=== PATIENT | male | born 1960 | race African-American/Black ===

== ENCOUNTER 2025-04-30 09:40 | Outpatient (AMB) | payer OTHER, SELFPAY ==
--- NOTE | 2025-04-30 09:58 | A.OFFVIS_ITS ---
Vital Signs 04/30/25 10:01 Height 5 ft 5 in Weight 162 lb 11.218 oz BMI 27.1 BP 140/82 H Blood Pressure Location Lt brachial Position Sitting Pulse 97 Pulse Source Pulse Oximeter Pulse Oximetry (%) 98 Oxygen Delivery Method Room Air Intake Visit Reasons: Adrenal gland disorder Intake Note: New patient present today for Arenal Gland Disorder. Community Service Director Required: No Accompanied by: Self / Same As Patient Allergies No Known Allergies Allergy (Verified 04/30/25 10:03) Medication List - Last Reconciled 04/30/25 by Leroy Hendrix MD albuterol sulfate 90 mcg/actuation 1 inh inhalation Q4-6H PRN hydrocortisone 5 mg PO QID HPI Comments Details: History of Present Illness The patient is a 64 year old male presenting for an endocrinology consultation regarding his history of adrenal insufficiency. He was diagnosed with adrenal insufficiency in the past, likely less than 10 years ago, after being referred by his primary care provider at the [place] in [place] to an beam dyer recessed vat in [place]. The patient has a limited understanding of his condition and does not recall experiencing any specific symptoms such as fatigue, weakness, or weight loss at the time of diagnosis. He reports a decrease in his walking stamina compared to his younger years but denies any history of adrenal crisis, hospitalization for this condition, passing out, or significant dizziness. His treatment has consisted of hydrocortisone, and he denies ever taking fludrocortisone or other steroids like prednisone. The patient confirms he has an emergency hydrocortisone injection kit at home and wears a medical alert bracelet, although he was previously unaware of the bracelet's purpose. He denies ever having an Cortrosyn stimulation test. His family history is unknown as his mother did not discuss medical issues. He is a of the [employer] (formerly [employer] Medication History - Hydrocortisone: Currently taking for adrenal insufficiency. - Fludrocortisone: Denies ever taking. - Prednisone: Denies ever taking for asthma or other conditions. Medications - Hydrocortisone 5 mg: Takes 3 pills (15 mg) in the morning and 1 pill (5 mg) at night. Exercise The patient reports a history of being active, having previously walked long distances regularly. He notes that he can no longer walk as far as he used to. Diet History The patient reports a good appetite. He was previously underweight and has been actively trying to gain weight, and he reports feeling good at his current weight. Results [facility] Medical History (Updated 04/30/25 @ 10:37 by Leroy Hendrix MD) Adrenal insufficiency Surgical History History of jaw surgery Family History Mother No problems noted. Social History (Updated 04/30/25 @ 10:08 by BENTON Wright) Alcohol intake: current Alcohol intake frequency: holidays/special occasions only Patient Tobacco Use Status: Current everyday Tobacco user Review of Systems Narrative Review of Systems - Constitutional: Reports good appetite and feeling well at his current weight after a period of being underweight. Denies fatigue, weakness, or weight loss at the time of his initial diagnosis. - Neurological: Denies dizziness on standing or a history of syncope. - Gastrointestinal: Reports good appetite. Denies nausea. - Musculoskeletal: Reports decreased walking tolerance compared to the past. - Integumentary: Denies any skin discoloration. Physical Exam Exam Exam: Physical Exam - General: Well-appearing male, cooperative with exam. - HEENT: Oropharynx is clear, no buccal mucosal hyperpigmentation. - Neck: Supple, no thyromegaly noted. - Skin: No hyperpigmentation or discoloration noted. Patient is wearing a medical alert bracelet. - Lungs: Clear to auscultation bilaterally. Absence of Cushingoid features. Absence of acromegalic features. Neck exam reveals nl size thyroid about 15 gms. No thyroid nodules palpable. Heart S1 S2, Reg R/R. No M/R G. Skin exam reveals absence of vitiligo or acanthosis nigricans. Visual exam of foot performed. No ulcerations or open lesions. No inter digit maceration or fissuring. No onychomycosis, no callouses. Sensation intact to monofilament exam. Vibratory sensation is normal with 128 Hz tuning fork. Vital Signs: Last Vital Signs Pulse 97 04/30/25 10:01 BP 140/82 H 04/30/25 10:01 Pulse Ox 98 04/30/25 10:01 Oxygen Delivery Method Room Air 04/30/25 10:01 BMI result Body Mass Index 27.1 Const Other: There is the absence of hyperpigmentation of hyperpigmentation of the skin or buccal hyperpigmentation. Thyroid gland is normal size weighs about 15 g. There are no thyroid nodules palpated. There were no cushingoid features Assessment & Plan Assessment & Plan (1) Adrenal insufficiency: Code(s): E27.40 - Unspecified adrenocortical insufficiency Category: Medical Plan: 64-year-old black male with a history of adrenal insufficiency ? primary versus secondary currently being treated with hydrocortisone 5 mg q.i.d.. Plan Assessment and Plan 1. Adrenal Insufficiency The patient is a 64-year-old male with a history of adrenal insufficiency, for whom the etiology is unclear. He was referred for ongoing management after the skilled nursing of his prior beam dyer recessed vat. 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 The immediate plan is to establish the correct diagnosis and confirm the ongoing necessity of steroid replacement therapy to avoid potential complications of both under- and over-treatment, such as Joni syndrome. Obtain morning blood tests, specifically an 8:00 AM ACTH, to help differentiate between primary and secondary adrenal insufficiency. The patient was instructed that these labs must be drawn at 8:00 AM. Check a DHEA-S level as well as a renin level Have the patient sign a release of information to obtain prior medical records from the [place] and Dr. Rodarte to review any previous diagnostic workup. The patient will continue his current hydrocortisone regimen of 15 mg in the morning and 5 mg at night. Re-educated the patient on sick day rules: double the hydrocortisone dose for illness or fever. In the event of vomiting and inability to take oral medication, he is to use his emergency hydrocortisone injection and proceed to an emergency room. Deferred further diagnostic studies such as a pituitary MRI or a stimulation test pending results of the initial bloodwork and review of prior records. Recommended the continued use of his medical alert bracelet. Schedule a follow-up visit in approximately 10 weeks to review results. The patient was advised to complete the lab work at least two weeks prior to the follow-up appointment. The patient had an opportunity to ask questions regarding treatment plan. The patient expressed understanding and agreement with the above treatment plan. Patient was informed and verbally consented to the use of an ambient scribe for clinic note documentation during this visit. Discussion Notes I explained to the patient the function of the adrenal glands and the hormone cortisol. I discussed the potential causes of his adrenal insufficiency, differentiating between primary adrenal insufficiency (a problem with the adrenal glands themselves, like Donny's disease) and secondary adrenal insufficiency (an issue with the signal from the pituitary gland in the brain). I outlined my plan to investigate the cause by ordering specific morning blood tests and requesting his prior medical records from the [place]. I mentioned that future testing, such as an MRI of the pituitary or a stimulation test, may be necessary depending on these initial results. I instructed him to continue his current hydrocortisone dose and reviewed the critical importance of sick day ru les, including doubling the dose when ill and using his emergency injection and seeking ER care if he is vomiting and unable to take his medication orally. We arranged for a follow-up in about 10 weeks, and I stressed that the blood work needs to be completed at 8 AM and at least two weeks before his next visit. Patient Instructions - Continue taking your hydrocortisone as prescribed: 3 pills (15 mg) in the morning and 1 pill (5 mg) at night. - Go to the lab on the first floor of this building to have blood tests done. It is very important that you go at 8:00 in the morning for this test. You do not need to fast (it is okay to eat beforehand). - Please get your blood work done at least two weeks before your next appointment. - Before you leave today, please sign a release form so we can get your past medical records from the [place]. - Remember your sick day rules: If you get sick with an infection or a fever, double your dose of hydrocortisone (take 30 mg in the morning and 10 mg at nig ht). - If you are sick and throwing up and cannot keep your pills down, use your emergency injection and go to the nearest emergency room right away. - We will see you back in the office in about 10 weeks. Orders: Orders DHEA Sulfate Today E27.40 - Unspecified adrenocortical insufficiency Adrenocorticotropic Hormone Today E27.40 - Unspecified adrenocortical insufficiency Renin Today E27.40 - Unspecified adrenocortical insufficiency Coding Level of Care Code New Pt Level 4 (45047) Diagnoses Adrenal insufficiency E27.40
[2025-04-30 10:01] VITALS: BP 140/82; PULSE 97; O2SAT 98; BMI 27.1
--- OUTSIDE RECORDS SUMMARY | 2025-04-30 10:31 | XMS_ITS | Clinical Summary ---
Author Organization [facility] Address [address] [place] [address] Phone Care Team Providers Care Sharepoint Engineer Name Role Phone Mana Price MD Primary Care Provider [phone] Allergies No known active allergies Medications methocarbamoL (ROBAXIN) 750 mg tablet Take 1 tablet (750 mg total) by mouth 4 (four) times a day. 12 each 06/08/2024 Active ibuprofen (ADVIL,MOTRIN) 600 mg tablet Take 1 tablet (600 mg total) by mouth every 6 (six) hours if needed for mild pain (for pain). 16 tablet 06/08/2024 Active acetaminophen (TYLENOL) 500 mg tablet Take 2 tablets (1,000 mg total) by mouth every 6 (six) hours if needed for mild pain. 24 tablet 06/08/2024 Active Active Problems No known active problems Social History Tobacco Use Types Packs/Day Years Used Date Smoking Tobacco: Never Assessed Sex and Gender Information Value Date Recorded Sex Assigned at Male 06/08/2024 10:26 AM EST Legal Sex Male 2:59 PM EST Gender Identity Male 06/08/2024 10:26 AM EST Sexual Orientation Choose not to disclose 2024 10:26 AM EST Last Filed Vital Signs Vital Sign Reading Time Taken Comments Blood Pressure 135/74 06/08/2024 7:49 AM EST Pulse 78 06/08/2024 7:49 AM EST Temperature 37 C (98.6 F) 06/08/2024 7:49 AM EST Respiratory Rate 16 06/08/2024 7:49 AM EST Oxygen Saturation - - Inhaled Oxygen Concentration - - Weight - - Height - - Body Mass Index - - Plan of Treatment Health Maintenance Due Date Last Done Comments Colorectal Cancer Screening: Colonoscopy 1960 Hepatitis A Vaccines (1 of 2 - Risk 2-dose series) 1980 RSV Immunization Adult Patients (1 - Risk 50-74 years 1-dose series) 07/25/2011 Zoster Vaccines (1 of 2) 07/25/2011 Pneumococcal Vaccine: 50+ Years (2 of 2 - PCV) 01/15/2016 01/14/2015 Depression Screening 05/09/2024 Cholesterol Screening (Lipid Panel) 06/08/2024 HIV Screening 06/08/2024 Hepatitis C Screening 06/08/2024 Social Influencers of Health Screening 06/08/2024 COVID-19 Vaccine ( - season) 2025 11/30/2022, 08/05/2020, 07/15/2020 Influenza Vaccine (#1) 2025 , 01/24/2023, 06/21/2022, Additional history exists DTaP,Tdap,and Td Vaccines (3 - Td or Tdap) 01/14/2025 01/14/2015, 01/31/2014 HIB Vaccines Aged Out No longer eligi ble based on patient's age to complete this topic HPV Vaccines Aged Out No longer eligi ble based on patient's age to complete this topic Hepatitis B Vaccines Aged Out No long er eligible based on patient's age to complete this topic IPV Vaccines Aged Out No longer eligi ble based on patient's age to complete this topic MMR Vaccines Aged Out No longer eligi ble based on patient's age to complete this topic Meningococcal ACWY Vaccine Aged Out N o longer eligible based on patient's age to complete this topic Meningococcal B Vaccine Aged Out No l onger eligible based on patient's age to complete this topic RSV Immunization Patients Under 20 months Aged Out No longer eligible based on patient's age to complete this topic Varicella Vaccines Aged Out No longer eligible based on patient's age to complete this topic Insurance MEDICAID - [place] Care Teams Sharepoint Engineer Relationship Specialty Start Date End Date Mana Price MD [address] [place] [address] PCP - General Internal Medicine 06/08/24
== END 2025-04-30 11:05 | disposition home or self-care (01) ==
PROVIDERS: PCP Internal Medicine Endocrinology, Diabetes & Metabolism; Visit Provider Internal Medicine Endocrinology, Diabetes & Metabolism
DX: E27.40 Unspecified adrenocortical insufficiency (principal)
CPT/HCPCS: 99204

== ENCOUNTER → 2025-04-30 09:40 | Outpatient (BNVA) | payer OTHER, SELFPAY | PROVIDERS: PCP Internal Medicine Endocrinology, Diabetes & Metabolism; Visit Provider Internal Medicine Endocrinology, Diabetes & Metabolism | DX: E27.40 Unspecified adrenocortical insufficiency (principal); Z79.899 Other long term (current) drug therapy | CPT/HCPCS: 99202 ==